=== PATIENT | male | born 1960 | race African-American/Black ===

== ENCOUNTER 2016-06-18 13:12 | Emergency (ER) | payer OTHER ==
[2016-06-18 13:24] VITALS: BP 127/88
--- OUTSIDE RECORDS SUMMARY | 2016-06-18 13:35 | XMS REPORT | Continuity of Care Document ---
:1960 Author Organization [facility] ([facility]) [place] [address] Phone [phone] Care Team Providers Name Role Phone Provider, No-Primary Care Primary Care Provider Unavailable Source Comments This disclosure is being made pursuant to the Care Everywhere program, applicable federal and state laws, and may not contain all informaitonavailable regarding this patient.[facility] ([facility]) Active Allergies and Adverse Reactions No Known Allergies Current Medications No known medications Active Problems Problem Noted Date Peritonsillar abscess 08/13/2010 Social History Tobacco Use Types Packs/Day Years Used Date Never Assessed Last Filed Vital Signs Vital Sign Reading Time Taken Blood Pressure 115/54 08/13/2010 3:18 PM CDT Pulse 65 08/13/2010 3:18 PM CDT Temperature 35.4 C (95.7 F) 08/13/2010 12:54 PM CDT Respiratory Rate 16 08/13/2010 3:18 PM CDT Height 1.854 m (6' 1") 08/13/2010 12:54 PM CDT Weight 68.04 kg (150 lb) 08/13/2010 12:54 PM CDT Body Mass Index 19.79 08/13/2010 12:54 PM CDT Oxygen Saturation - - Plan of Care Health Maintenance Due Date Last Done Comments HCV Screening 1960 Hepatitis B Vaccine (1 of 3 - Primary Series) 1960 Tdap Vaccine 01/16/1971 Lipid Disorder Screening 01/16/1978 MMR Vaccine 01/16/1978 Td Vaccine 01/16/1978 Colonoscopy 01/16/2010 Prostate Cancer Screening 01/16/2010 Influenza Vaccine: Seasonal (#1) 09/23/2015 Results from Last 3 Months Not on file
[2016-06-18] MEDS ORDERED: DIAZEPAM 5 MG TABLET PO ONE (13:37)
[2016-06-18] MEDS ORDERED: DIAZEPAM 5 MG TABLET ONE (13:38)
[2016-06-18 13:52] LABS: Hemoglobin 13.4 gm/dL (13.5-18.0); Mean Cell Volume 88.9 fl (78-100); Mean Corpuscular Hemoglobin 29.8 pg (27-31); Mean Corpuscular Hgb Conc 33.5 g/dl (32-36); Mean Platelet Volume 10.2 fl (6.0-9.5); Neutrophil # 3.2 K/mm3 (1.3-6.0); Neutrophil % 44.4 % (42-75.0); Platelet Count 246 K/mm3 (150-450); Red Cell Distribution Width 13.7 % (11.5-14.0); White Blood Count 7.1 K/mm3 (4.0-10.5)
[2016-06-18 14:09] LABS: ALT 40 U/L (19-67); AST 29 U/L (0-48); Albumin * 3.8 gm/dl (3.4-5.0); Alkaline Phosphatase * 45 U/L (50-170); Anion Gap 10.8 mmol/L (6.8-13.8); BUN/Creatinine Ratio 17.8 (9.0-21.6); Bilirubin, Total 0.3 mg/dL (0.0-1.1); Blood Urea Nitrogen 19 mg/dL (6-23); Calcium * 9.2 mg/dL (7.9-10.9); Carbon Dioxide 32.2 mmol/L (24-32.6); Chloride 103 mmol/L (97-106); Glucose * 140 mg/dL (70-110); Sodium 142 mmol/L (132-142); Total Protein 7.7 gm/dL (6.2-8.2)
[2016-06-18 14:10] LABS: Troponin I Less than 0.017 ng/ml (0.00-0.10)
--- NOTE | 2016-06-18 15:08 | ERNOTE ---
Back Pain ER HPI Date of Service: 06/18/16 Time Seen by Provider: 06/18/16 13:28 Source: patient Exam Limitations: no limitations Immunizations: IMMUNIZATION HX Immunizations Up to Date No History of Influenza Vaccine No Hx Pneumococcal Vaccination No Allergies/Adverse Reactions: Allergies No Known Allergies Allergy (Verified 06/18/16 13:24) Home Medications: HOME MEDICATIONS ASA/Salicylam/Acetaminoph/Caff [Pain Relief Tablet] 2 tab PO PRN PRN 02/05/16 [ Last Taken Unknown] Ibuprofen [Motrin] 600 mg PO Q6H PRN #40 tab 02/05/16 [Last Taken Unknown] Diazepam [Valium] 2 mg PO TID PRN #12 tablet 06/18/16 [Last Taken Unknown] Narrative: patient presents to the ED for back pain. He relates that he is having a muscle spasm in his back. This is on the right side of his back. No injury. He has had this before. He can feel the muscle spasm in his back and is spasms so much it makes him fell SOB. No abdominal pain, no urinary Sx. No trauma. No CP or abdominal pain. He has been having some numbness left low leg for a month or two but otherwise no focal N/T/W. Timing: Reports: constant Quality/Severity: Reports: severe Location of pain: Reports: other - right mid back Activities at Onset: Reports: none Recent Injury?: Reports: no Possible Precipitating Factor: Reports: none Modifying Factors - (Improves): Reports: nothing Modifying Factors - (Worsens): Reports: movement to right, movement flexion, other - palpation. he localized the area with his finger and jumps when he touches it. Associated Symptoms: Denies: fever/chills, constipation/incontinence, nausea/ vomiting, problems urinating, difficulty walking, numbess/weakness in legs Prior Treament: Denies: recently seen Review of Systems - Review of Systems Constitutional: Absent: fever Respiratory: Present: See HPI Cardiology: Present: no symptoms reported. Absent: chest pain Gastrointestinal/Abdominal: Absent: abdominal pain Genitourinary: Present: no symptoms reported Musculoskeletal: Present: See HPI Skin: Absent: rash Neurological: Absent: weakness - Patient's Past Medical History Patient History - Medical: Arthritis, Other Patient History - Cardiac/Respiratory: No pertinent hx Patient History - Cancer: No Hx of Cancer Patient History - Surgical Procedures: Colonoscopy Patient History - Other: None - Family History Mother Family History - Medical: , Other Family History - Cardiac/Respiratory: CVA/Stroke, Hypertension Father Family History - Medical: , No pertinent hx Family History - Cardiac/Respiratory: No pertinent hx - Social History Living Situations: home Abuse History: No History of abuse Psych History: No pertinent hx Smoking Status: Current every day smoker Alcohol Use: heavy Drug Use: none - Immunizations Immunizations Up to Date: No Hx Pneumococcal Vaccination: No History of Influenza Vaccine: No Physical Exam - Physical Exam General Appearance: Present: alert, no apparent distress Eye Exam: Normal inspection: bilateral, PERRL: bilateral Ears, Nose, Throat: Present: normal ENT inspection Neck: Present: normal inspection Respiratory: Present: no respiratory distress, normal breath sounds, no accessory muscle use, lungs clear Cardiovascular/Chest: Present: regular rate, rhythm, normal peripheral pulses Gastrointestinal/Abdominal: Present: normal bowel sounds, nontender, nondistended, soft. Absent: tenderness Back Exam: Present: no vertebral tenderness, other - He has completely reproducible point muscular tenderness right paraspinal musculature. This is mid back. No CVA tenderness. He has significant point muscular tenderness right mid back and this completely reproduces his pain. Clinically this is all muscular pain. Extremity Exam: Present: no edema. Absent: calf tenderness Neurological Exam: Present: alert, normal mood/affect, no motor/sensory deficits Skin Exam: Absent: skin rash ED Progress - Results and Orders Patient's Lab Results:: I have reviewed the patient's lab results. - Vital Signs Patient's Vital Signs:: I have reviewed the patient's vital signs. Vital Signs: Vital Signs 06/18/16 13:20 Temperature 36.2 C L Pulse Rate 69 Respiratory 12 Rate Blood Pressure 127/88 O2 Sat by Pulse 100 Oximetry - EKG EKG read: Interp. by me EKG Comments: NSR rate 62. J point elevation. Non-specific ST/T wave changes. No clear evidence of STEMI. - X-Ray X-Ray #1 X-Ray: chest Interpretation: Reviewed by me X-ray Comments: No acute process - Progress/Reassessment Chief Complaint: Back Pain Progress Note-Subjective: 06/18/16 15:03 Clinically this is all muscular pain. Nothing to suggest PE or aortic dissection, nothing to suggest ACS. No neuro deficits or findings of infectious process. Treat muscle spasm at this time and close outpatient f/u. He wishes to go home. I disucssed warning signs and reasons to return as well as the need for close f/u. Departure Clinical Impression: Musculoskeletal pain - Departure Disposition: Home self-care Condition: Stable Instructions: Musculoskeletal Pain Additional Instructions: rest. Follow-up with your primary doctor in 2-3 days for a re-check. Return for increased pain, numbness, tingling, weakness or if your condition worsens or changes in any way. Referrals: Shelly Arguello DO [Primary Care Provider] - Prescriptions: Diazepam [Valium] 2 mg PO TID PRN #12 tablet PRN Reason: Muscle Pain
== END 2016-06-18 15:10 | disposition home or self-care (01) ==
LOC: ER 13:12
DX: M79.1 Myalgia (principal); Z72.0 Tobacco use

== ENCOUNTER 2016-09-06 09:56 | Emergency (ER) | payer OTHER ==
[2016-09-06] MEDS ORDERED: IBUPROFEN 600 MG TABLET PO ONE (10:37)
--- NOTE | 2016-09-06 10:38 | ERNOTE ---
Upper Extremity HPI - General Extremities Pain Location: shoulder: right Time Seen by Provider: 09/06/16 10:25 Source: patient Exam Limitations: no limitations - Immun/Allergies/Home Medications Immunizations: IMMUNIZATION HX Immunizations Up to Date No History of Influenza Vaccine No Hx Pneumococcal Vaccination No Allergies/Adverse Reactions: Allergies Allergy/AdvReac Type Severity Reaction Status Date / Time No Known Allergies Allergy Verified 09/06/16 10:30 Home Medications: HOME MEDICATIONS Ibuprofen [Motrin] 600 mg PO Q6H PRN #40 tab 09/06/16 [Last Taken Unknown] - History of Present Illness Narrative: Patient slipped on a spill in the store, fell and braced Himself with his right hand. He was able to get up, denies any head injury or loss of consciousness, had no significant pain till this morning. The pain is in the right shoulder only, took two dollar store pain reliever before coming here (500mg each) Date (Duration): 09/05/16 Occurred: yesterday Location of Incident: other Method of Injury: Reports: fell Review of Systems - Review of Systems Constitutional: Absent: recent illness, fever ENT: Absent: nose congestion, sore throat Respiratory: Absent: shortness of breath Cardiology: Absent: chest pain Gastrointestinal/Abdominal: Absent: nausea, abdominal pain Genitourinary: Present: no symptoms reported Musculoskeletal: Present: See HPI Neurological: Absent: weakness, numbness - Patient's Past Medical History Patient History - Medical: Arthritis, Other Patient History - Cardiac/Respiratory: No pertinent hx Patient History - Cancer: No Hx of Cancer Patient History - Surgical Procedures: Colonoscopy Patient History - Other: None - Family History Mother Family History - Medical: , Other Family History - Cardiac/Respiratory: CVA/Stroke, Hypertension Father Family History - Medical: , No pertinent hx Family History - Cardiac/Respiratory: No pertinent hx - Social History Living Situations: home Abuse History: No History of abuse Psych History: No pertinent hx Alcohol Use: heavy Drug Use: none - Immunizations Immunizations Up to Date: No Hx Pneumococcal Vaccination: No History of Influenza Vaccine: No Physical Exam - Physical Exam General Appearance: Present: wd/wn, alert, no apparent distress Head Exam: Present: normal inspection, no evidence of injury Neck: Present: normal inspection, nontender Respiratory: Present: no respiratory distress, normal breath sounds, chest nontender, lungs clear Cardiovascular/Chest: Present: regular rate, rhythm, no murmur Back Exam: Present: normal inspection, normal range of motion, no vertebral tenderness Extremity Exam: Present: normal except - - right shoulder: normal inspection, tender over scapula spine and adjoining muscle, pain on ROM Neurological Exam: Present: alert, oriented, normal mood/affect, no motor/ sensory deficits Skin Exam: Present: normal color, warm/dry ED Progress - Vital Signs Patient's Vital Signs:: I have reviewed the patient's vital signs. - X-Ray X-Ray #1 X-Ray: shoulder - and scapula: no fracture Interpretation: Interp. by me - Progress/Reassessment Progress Note-Subjective: 09/06/16 11:34 pain better after ibuprofen, discussed xray results Departure Clinical Impression: Sprain of right shoulder Qualifiers: Encounter type: initial encounter Shoulder sprain type: unspecified sprain Qualified Code(s): S43.401A - Unspecified sprain of right shoulder joint, initial encounter - Departure Disposition: Home self-care Condition: Good Instructions: Shoulder Sprain, Form - Excuse from Work, School, or Physical Activity Additional Instructions: if you don't get better over the next few days call the orthopedic office for follow up Referrals: Shelly Arguello DO [Primary Care Provider] - Ashutosh Jaramillo MD [Staff Physician] - Prescriptions: Ibuprofen [Motrin] 600 mg PO Q6H PRN #40 tab PRN Reason: Pain
[2016-09-06] MEDS ORDERED: IBUPROFEN 600 MG TABLET ONE (11:15)
[2016-09-06 11:19] VITALS: BP 113/70
== END 2016-09-06 11:38 | disposition home or self-care (01) ==
LOC: ER 09:56
DX: S43.401A Unspecified sprain of right shoulder joint, initial encounter (principal); W01.0XXA Fall on same level from slipping, tripping and stumbling without subsequent striking against object, initial encounter; Y93.9 Activity, unspecified; Y92.512 Supermarket, store or market as the place of occurrence of the external cause

== ENCOUNTER 2016-10-14 06:14 | Emergency (ER) | payer OTHER ==
[2016-10-14] MEDS ORDERED: KETOROLAC TROMETHAMINE 60 MG/2 ML VIAL IM ONE ×2 (06:33→06:36)
--- NOTE | 2016-10-14 06:40 | ERNOTE ---
Back Pain ER HPI Presenting Symptoms: injury/pain to back Time Seen by Provider: 10/14/16 06:28 Source: patient Immunizations: IMMUNIZATION HX Immunizations Up to Date No History of Influenza Vaccine No Hx Pneumococcal Vaccination No Allergies/Adverse Reactions: Allergies No Known Allergies Allergy (Verified 09/06/16 10:30) Home Medications: HOME MEDICATIONS Ibuprofen [Motrin] 600 mg PO Q6H PRN #40 tab 09/06/16 [Last Taken 10/13/16] Nabumetone 750 mg PO BID #20 tablet 10/14/16 [Last Taken Unknown] Narrative: Pt has had consistent pain in his right low back for 4-6 weeks. Worse with activity and better with ibuprofen but it continues to return. Denies radiation or weakness. Timing: Reports: constant Quality/Severity: Reports: moderate Location of pain: Reports: lower back, no radiation Activities at Onset: Reports: none Recent Injury?: Reports: no Modifying Factors - (Improves): Reports: supine position Modifying Factors - (Worsens): Reports: movement flexion Associated Symptoms: Denies: fever/chills, problems urinating Review of Systems - Review of Systems Constitutional: Absent: recent illness EYE: Present: no symptoms reported ENT: Present: no symptoms reported Respiratory: Present: no symptoms reported Cardiology: Present: no symptoms reported Musculoskeletal: Present: See HPI Skin: Present: no symptoms reported Neurological: Absent: weakness, numbness, tingling Endocrine: Present: no symptoms reported Hematologic/Lymphatic: Present: no symptoms reported Psych: Present: no symptoms reported - Patient's Past Medical History Patient History - Medical: Arthritis, Other Patient History - Cardiac/Respiratory: No pertinent hx Patient History - Cancer: No Hx of Cancer Patient History - Surgical Procedures: Colonoscopy Patient History - Other: None - Family History Mother Family History - Medical: , Other Family History - Cardiac/Respiratory: CVA/Stroke, Hypertension Father Family History - Medical: , No pertinent hx Family History - Cardiac/Respiratory: No pertinent hx - Social History Living Situations: home Abuse History: No History of abuse Psych History: No pertinent hx Smoking Status: Current every day smoker Have you smoked in the past 12 months: Yes Do you dip or chew tobacco: No Alcohol Use: heavy Drug Use: none - Immunizations Immunizations Up to Date: No Hx Pneumococcal Vaccination: No History of Influenza Vaccine: No Physical Exam - Physical Exam General Appearance: Present: wd/wn, alert, no apparent distress Head Exam: Present: normal inspection, no evidence of injury Neck: Present: normal inspection, nontender Respiratory: Present: no respiratory distress, no accessory muscle use Back Exam: Present: no vertebral tenderness, other - tenderness at right SI. Pain increased with DAY test. Extremity Exam: Present: normal inspection, normal range of motion Neurological Exam: Present: alert, oriented, normal mood/affect, no motor/ sensory deficits Skin Exam: Present: normal color, warm/dry ED Progress - Vital Signs Vital Signs: Vital Signs 10/14/16 06:19 Temperature 36.6 C Pulse Rate 86 Respiratory 14 Rate Blood Pressure 102/68 O2 Sat by Pulse 99 Oximetry - Progress/Reassessment Chief Complaint: Back Pain Departure Clinical Impression: Sacroiliac (ligament) sprain Qualifiers: Encounter type: initial encounter Qualified Code(s): S33.6XXA - Sprain of sacroiliac joint, initial encounter - Departure Disposition: Home self-care Condition: Good Instructions: Sacroiliac Joint Dysfunction Additional Instructions: take the prescription medication starting tonight. Do not take ibuprofen while taking this medication. follow up with your regular doctor if not improving in 1-2 weeks. Referrals: Shelly Arguello DO [Primary Care Provider] - Prescriptions: Nabumetone 750 mg PO BID #20 tablet
[2016-10-14 06:58] VITALS: BP 100/62
== END 2016-10-14 06:58 | disposition home or self-care (01) ==
LOC: ER 06:14
DX: S33.6XXA Sprain of sacroiliac joint, initial encounter (principal)

== ENCOUNTER 2016-12-21 09:17 | Emergency (ER) | payer OTHER ==
[2016-12-21 09:25] VITALS: BP 126/76
--- NOTE | 2016-12-21 10:46 | ERNOTE ---
Upper Extremity HPI - Narrative Date of Service: 12/21/16 - General Extremities Pain Location: shoulder: right Time Seen by Provider: 12/21/16 10:49 Source: patient Exam Limitations: no limitations - Immun/Allergies/Home Medications Immunizations: IMMUNIZATION HX Immunizations Up to Date No History of Influenza Vaccine No Hx Pneumococcal Vaccination No Allergies/Adverse Reactions: Allergies Allergy/AdvReac Type Severity Reaction Status Date / Time No Known Allergies Allergy Verified 12/21/16 09:25 Home Medications: HOME MEDICATIONS Ibuprofen [Motrin] 600 mg PO Q6H PRN #40 tab 09/06/16 [Last Taken 10/13/16] Nabumetone 750 mg PO BID #20 tablet 10/14/16 [Last Taken Unknown] - Pain Score Pain Score #1 Pain Score: 8 - History of Present Illness Narrative: 56yo, M, presents to the ER for evaluation of R. shoulder injury. Reports he was sleeping and rolled off the bed, falling onto his R. shoulder onto a wood floor. [place] numbness to his R. shoulder initially for approx 30 min, followed by pain to R. shoulder. He reports hx of "rotator cuff sprain" in August 2016, which was tx with NSAIDs and PT. Pain had resolved until today when he fell. He denies any pain to neck, head, chest wall, elbow, wrist or lower body since fall. Date (Duration): 12/21/16 Time (Timing): 04:00 Location of Incident: home Method of Injury: Reports: fell Reason for Fall: Reports: other - rolled off bed Loss of Consciousness: Reports: no loss of consciousness Modifying Factors - (Improves): Reports: pain medication - ibuprofen, rest Modifying Factors - (Worsens): Reports: movement Other Injuries: Reports: none Review of Systems - Review of Systems Constitutional: Present: no symptoms reported Respiratory: Absent: shortness of breath Cardiology: Absent: chest pain, palpitations Musculoskeletal: Present: joint pain - R. shoulder, other - pain to R. shoulder with ROM. Absent: back pain, neck pain Neurological: Present: numbness - initially to R. shoulder, now resolved - Patient's Past Medical History Patient History - Medical: Arthritis, Other Patient History - Cardiac/Respiratory: No pertinent hx Patient History - Cancer: No Hx of Cancer Patient History - Surgical Procedures: Colonoscopy Patient History - Other: None - Family History Mother Family History - Medical: , Other Family History - Cardiac/Respiratory: CVA/Stroke, Hypertension Father Family History - Medical: , No pertinent hx Family History - Cardiac/Respiratory: No pertinent hx - Social History Living Situations: home Abuse History: No History of abuse Psych History: No pertinent hx Alcohol Use: none Drug Use: none - Immunizations Immunizations Up to Date: No Hx Pneumococcal Vaccination: No History of Influenza Vaccine: No Physical Exam - Physical Exam General Appearance: Present: wd/wn, alert, no apparent distress Respiratory: Present: no respiratory distress, lungs clear. Absent: crackles, rhonchi, wheezing Cardiovascular/Chest: Present: regular rate, rhythm, no murmur Extremity Exam: Present: decreased range of motion - R. shoulder, pain with ROM over 90 degrees, full ROM to R. elbow, other - tenderness on palpation anterior shoulder, denies pain with abduction against resistance, able to hook R. bicep tendon. Absent: joint redness, joint swelling Neurological Exam: Present: alert, oriented Skin Exam: Present: normal color, warm/dry ED Progress - Vital Signs Patient's Vital Signs:: I have reviewed the patient's vital signs. Vital Signs: Vital Signs 12/21/16 09:20 Temperature 35.9 C L Pulse Rate 61 Respiratory 12 Rate Blood Pressure 126/76 O2 Sat by Pulse 99 Oximetry - X-Ray X-Ray #1 X-Ray: shoulder Interpretation: Reviewed by me X-ray Comments: [facility] PATIENT RADIOLOGY STUDY REPORT Patient Patient Name:NAHOMI VALENCIA Date: 1960 Sex: M Order Number: [id number] Unique Exam ID: [id number] Exam Requested: [id number] - Shoulder 3 of More Views RT * Date Scheduled: 12-21-2016 09:26 AM Study Priority: Requesting Service: Requesting Physician: Funmi Oneill Reason for Exam: shoulder pain Radiological Report : [facility] [address] [place] [address] NAME: NAHOMI VALENCIA : 1960 MR #: [id number] CC: LOC: ER ADM DATE: X-RAY REPORT [id number] RAD/Shoulder 3 of More Views RT * Exam Date: 12/21/2016 09:26 Ordering Physician: Funmi Oneill HISTORY: Rolled out of bed landing on right shoulder. Right shoulder pain THREE VIEW RIGHT SHOULDER COMPARISON: None Technique: Three projections of the shoulder were obtained. Findings: The acromioclavicular joint is mildly narrowed with minimal spurring. The clavicle appears intact and is not elevated. The visualized scapula is intact. The glenohumeral joint is maintained and I do not see evidence for dislocation. The proximal humerus is intact. If there is clinical concern for internal derangement, followup MRI is recommended. The visualized lung field is clear. IMPRESSION: 1. NO ACUTE OSSEOUS ABNORMALITY. Electronically signed by Stephan Givens M.D.. Stephan Givens MD Dict: 12/21/16 1038 Typed: 12/21/16 1038/ 12/21/16 1039 12/21/16 1042 , Approved by: Stephan Givens Approval Date: 12-21-2016 Approval Time: 10:38 AM THIS REPORT WAS RECEIVED FROM THE [employer] SYSTEM - Progress/Reassessment Chief Complaint: Shoulder Injury/Pain Progress:: Unchanged Departure Clinical Impression: Sprain of right shoulder Qualifiers: Encounter type: initial encounter Shoulder sprain type: unspecified sprain Qualified Code(s): S43.401A - Unspecified sprain of right shoulder joint, initial encounter Right shoulder pain Qualifiers: Chronicity: acute Qualified Code(s): M25.511 - Pain in right shoulder - Departure Disposition: Home self-care Condition: Good Instructions: Shoulder Pain, [id number] Additional Instructions: Rest and ice right shoulder No lifting with right arm for 1 week Schedule follow up with orthopedics Perform pendulum swings to prevent shoulder stiffness Referrals: Shelly Arguello DO [Primary Care Provider] - Jose A Beck MD [Staff Physician] -
== END 2016-12-21 11:10 | disposition home or self-care (01) ==
LOC: ER 09:17
DX: S43.401A Unspecified sprain of right shoulder joint, initial encounter (principal); W06.XXXA Fall from bed, initial encounter; Y93.89 Activity, other specified; Y92.003 Bedroom of unspecified non-institutional (private) residence as the place of occurrence of the external cause; Y99.9 Unspecified external cause status; M25.511 Pain in right shoulder